=== PATIENT | female | born 1980 | race Caucasian/White ===

== ENCOUNTER 2023-03-22 09:34 | Outpatient (OUT) | payer OTHER, SELFPAY ==
[2023-03-22 10:08] LABS: Basophils Percent Auto 0.7 % (0.2-2.0); Eosinophils Absolute Auto 0.2 10^3/uL (0.0-0.7); Eosinophils Percent Auto 3.9 % (0.9-7.0); Hematocrit 25.1 % (36.0-48.0); Immature Granulocytes Abs Auto 0.02 10^3/uL (0.00-0.03); Immature Granulocytes Pct Auto 0.3 % (0.0-0.5); Lymphocytes Absolute Auto 1.7 10^3/uL (1.2-3.8); Lymphocytes Percent Auto 28.1 % (20.5-60.0); Mean Corpuscular HGB Conc 31.9 g/dL (29.9-35.2); Mean Corpuscular Hemoglobin 27.2 pg (26.7-34.0); Mean Corpuscular Volume 85.4 fL (81.0-99.0); Mean Platelet Volume 9.1 fL (9.5-13.5); Monocytes Absolute Auto 0.3 10^3/uL (0.3-0.8); Monocytes Percent Auto 5.2 % (1.7-12.0); Neutrophils Absolute Auto 3.7 10^3/uL (1.4-6.5); Neutrophils Percent Auto 61.8 % (43.0-75.0); Platelet Count 269 10^3/uL (150-450); Red Blood Count 2.94 10^6/uL (4.20-5.40); Red Cell Distribution Width 19.8 % (11.0-15.0); White Blood Count 5.9 10^3/uL (4.0-11.0)
[2023-03-22 10:53] LABS: Estimated Average Glucose 108 mg/dL; Glycohemoglobin A1C 5.4 % (4.5-6.2)
[2023-03-22 10:54] LABS: Free T4 0.85 ng/dL (0.76-1.46)
[2023-03-22 11:42] LABS: HCG Quantitative <1 mIU/mL; Thyroid Stimulating Hormone 3.625 uIU/mL (0.358-3.740)
[2023-03-23 04:12] LABS: DHEA-Sulfate 50.3 ug/dL (57.3-279.2); FSH 3.1 mIU/mL (.); Luteinizing Hormone(LH) 5.1 mIU/mL (.)
[2023-03-27 15:13] LABS: DHEA, Serum 192 ng/dL (31-701)
== END 2023-03-22 09:35 ==
LOC: LAB 09:38
PROVIDERS: Visit Provider Obstetrics & Gynecology
DX: E88.81 Metabolic syndrome and other insulin resistance (principal)
CPT/HCPCS: 36415; 82626; 82627; 83001; 83002; 83036; 84439; 84443; 84702; 85025

== ENCOUNTER 2023-04-03 19:23 | Observation (INO) | payer OTHER, SELFPAY ==
[2023-04-03 19:29] VITALS: BP 169/94; PULSE 107; RESP 22; TEMP 36.9; O2SAT 100; BMI 40.8
[2023-04-03 19:31] VITALS: BP 169/94; PULSE 106; PULSE 108; RESP 21; RESP 25; O2SAT 100; O2SAT 99
--- NOTE | 2023-04-03 19:45 | PC.NURSE ---
pt presents to ED because patient states she has had a lot of uterine issues. pt had d/c a couple weeks ago. pt states that she has a hysterectomy scheduled in may. pt saw dr. murphy 2 weeks ago and was placed on megestrol to help control vaginal bleeding. pt states she was passing large clots but now bleeding has slowed down and she is barely bleeding. pt does have hx of anemia and had blood drawn 2 weeks ago and her hgb was 8. pt states for the last 2 weeks she has been experiencing dizziness, lightheadedness, heaviness in chest, sob, and headaches. over the last 4 days these symptoms have become increasingly worse.
--- NOTE | 2023-04-03 19:46 | ECG_ITS ---
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
--- NOTE | 2023-04-03 19:50 | ED.DIZZY1 ---
HPI - Dizziness General Chief Complaint: Dizziness Stated Complaint: DIZZNESS SHORTNESS OF BREATH Time Seen by Provider: 04/03/23 19:37 Source: patient Mode of arrival: walk-in Limitations: no limitations History of Present Illness HPI Narrative: patient is a 42-year-old female who presents to the emergency department for the evaluation of dizziness, shortness of breath increasing over the last several days. Patient has had ongoing issues with dysfunctional uterine bleeding and was seen in this emergency department several months ago, placed on Megace with significant improvement. She states that she had a D and C two weeks ago with significant improvement of the bleeding. Two weeks ago she had a return of severe dysfunctional uterine bleeding and was placed again on the Megace. She states her hemoglobin is that time was 8.0. She has continued to have worsening of shortness of breath, dizziness and feels nauseous. She has never received a blood transfusion in the past. She does have a history of anemia. She reports some tightness in the chest. Related Data Home Medications Medication Instructions Recorded Confirmed megestrol 20 mg tablet 20 mg PO DAILY 04/03/23 04/03/23 venlafaxine 37.5 mg 37.5 mg PO DAILY 04/03/23 04/03/23 capsule,extended release 24 hr Allergies Allergy/AdvReac Type Severity Reaction Status Date / Time No Known Drug Allergies Allergy Verified 04/03/23 19:35 Review of Systems ROS Constitutional Denies: fever or chills Cardiovascular Denies: chest pain Respiratory Reports: shortness of breath; Denies: cough Gastrointestinal Reports: nausea; Denies: abdominal pain or vomiting Musculoskeletal Denies: back pain Integumentary/Breast Denies: rash Neurological Denies: headache Psychiatric Reports: anxiety PFSH PFS Social History Smoking status: Never smoker Gender Identity: female Exam Narrative Exam Narrative: Gen.: Awake, alert, in no distress Head: Normocephalic, atraumatic ENT: Moist mucous membranes Respiratory: No respiratory distress, lungs clear bilaterally Cardio: Regular rate and rhythm Gastrointestinal: Abdomen is soft, nondistended and nontender to palpation Extremities: Moves extremities equally Psych: Normal mood and affect Neuro: No focal neuro deficit Skin: Warm, dry, intact Constitutional Vital Signs - 24 hr 04/03/23 19:29 04/03/23 19:31 04/03/23 19:31 Temperature 98.5 F Pulse Rate 108 H 106 H Pulse Rate [Monitor] 107 H Respiratory Rate 22 21 25 H Blood Pressure 169/94 H 169/94 H Blood Pressure [Left Arm] 169/94 H Pulse Oximetry 100 100 99 Oxygen Delivery Method Room Air 04/03/23 19:31 Temperature Pulse Rate Pulse Rate [Monitor] Respiratory Rate Blood Pressure 169/94 H Blood Pressure [Left Arm] Pulse Oximetry Oxygen Delivery Method Course Vital Signs Vital signs: Vital Signs Temperature 98.5 F 04/03/23 19:29 Pulse Rate 107 H 04/03/23 19:29 Respiratory Rate 22 04/03/23 19:29 Blood Pressure 169/94 H 04/03/23 19:29 Pulse Oximetry 100 04/03/23 19:29 Oxygen Delivery Method Room Air 04/03/23 19:29 Temperature 97.8 F 04/04/23 06:03 Pulse Rate 93 H 04/04/23 06:03 Respiratory Rate 16 04/04/23 06:03 Blood Pressure 101/63 04/04/23 06:03 Pulse Oximetry 99 04/04/23 06:03 Oxygen Delivery Method Room Air 04/04/23 06:03 MDM - Dizziness MDM Narrative Medical decision making narrative: patient was treated with IV fluids, she was given Zofran for nausea. She does not complain of pain. At this time vaginal bleeding is well-controlled. Lab studies show normal troponin, d-dimer, BNP and otherwise normal electrolytes. Chest x-ray was ordered. Patient was noted to have a hemoglobin of 7.0 and hematocrit 22.[address] Discussed with Dr. Suárez for gynecology and he will not do any emergent procedures for the patient but she should be admitted for observation for blood transfusion with further evaluation and treatment by SPECIAL EDUCATION SUPERVISOR as an outpatient. Patient is agreeable to admission and two units of blood were ordered for her. She is admitted to hospitalist service for observation with telemetry. Medical Records Attestation: I reviewed the patient's medical records. Lab Data Attestation: I reviewed the patient's lab results. Labs: Lab Results 04/03/23 04/03/23 04/03/23 Range/Units 19:50 20:09 20:50 WBC 6.3 (4.0-11.0) 10^3/uL RBC 2.66 L (4.20-5.40) 10^6/uL Hgb 7.0 L (12.0-16.0) g/dL Hct 22.7 L* (36.0-48.0) % MCV 85.3 (81.0-99.0) fL MCH 26.3 L (26.7-34.0) pg MCHC 30.8 (29.9-35.2) g/dL RDW 19.0 H (11.0-15.0) % Plt Count 309 (150-450) 10^3/uL MPV 9.3 L (9.5-13.5) fL Neut % (Auto) 60.5 (43.0-75.0) % Lymph % (Auto) 26.7 (20.5-60.0) % Citrus % (Auto) 7.2 (1.7-12.0) % Eos % (Auto) 4.6 (0.9-7.0) % Baso % (Auto) 0.5 (0.2-2.0) % Neut # (Auto) 3.8 (1.4-6.5) 10^3/uL Lymph # (Auto) 1.7 (1.2-3.8) 10^3/uL Citrus # (Auto) 0.5 (0.3-0.8) 10^3/uL Eos # (Auto) 0.3 (0.0-0.7) 10^3/uL Baso # (Auto) 0.0 (0.0-0.1) 10^3/uL Abs Immat Gran (auto) 0.03 (0.00-0.03) 10^3/uL Imm/Tot Granulo (auto) 0.5 (0.0-0.5) % PT 10.1 (9.0-11.6) sec INR 0.95 APTT 22.5 (22.3-36.2) sec D-Dimer 0.30 (<=0.59) mg/L FEU VBG pH 7.414 (7.330-7.430) VBG pCO2 39.2 L (40.0-52.0) mmHg Sodium 135 L (136-145) mmol/L Potassium 3.7 (3.5-5.1) mmol/L Chloride 103 (98-107) mmol/L Carbon Dioxide 23.7 (21.0-32.0) mmol/L Anion Gap 12.0 BUN 14.0 (7.0-18.0) mg/dL Creatinine 0.88 (0.55-1.02) mg/dL Est GFR ( Amer) >60 (>=60) Est GFR (Non-Af Amer) >60 (>=60) BUN/Creatinine Ratio 15.9 Glucose 118 H (74-106) mg/dL Calcium 8.8 (8.5-10.1) mg/dL Iron 21.0 L (50.0-170.0) ug/dL TIBC 552.0 H (250.0-450.0) ug/dL % Saturation 3.8 % Ferritin 8.0 (8.0-252.0) ng/mL Total Bilirubin 0.5 (0.2-1.0) mg/dL AST 27 (15-37) U/L ALT 41 (14-59) U/L Alkaline Phosphatase 49 (46-116) U/L Troponin I High Sens <4.0 L (4.0-51.3) pg/mL NT-Pro-B Natriuret Pep 50.0 (<=450.0) pg/mL Total Protein 7.2 (6.4-8.2) g/dL Albumin 3.6 (3.4-5.0) g/dL Globulin 3.6 g/dL Albumin/Globulin Ratio 1.0 Serum HCG, Qual Negative (NEGATIVE) Blood Type A Negative Antibody Screen Negative Crossmatch See Detail Imaging Data Chest x-ray: Attestation: I have reviewed the pertinent imaging results. ECG Data Attestation: I personally reviewed and interpreted this ECG as follows: (sinus tachycardia at a rate of one hundred, no acute ST elevation or ectopy. EKG reviewed by attending physician) ECG interpretation date: 04/03/23 ECG interpretation time: 20:03 Critical Care Time Critical Care Time Critical Care Time: Yes Total Critical Care Time: 35 Attestation: critical care time thirty-five minutes Discharge Plan Discharge Chief Complaint: Dizziness Clinical Impression: Shortness of breath, Dizziness, Anemia Patient Disposition: Admitted as Observation Time of Disposition Decision: 20:48 Discharge Date/Time: 04/03/23 21:44
[2023-04-03 20:02] LABS: Basophils Percent Auto 0.5 % (0.2-2.0); Eosinophils Absolute Auto 0.3 10^3/uL (0.0-0.7); Eosinophils Percent Auto 4.6 % (0.9-7.0); Immature Granulocytes Abs Auto 0.03 10^3/uL (0.00-0.03); Immature Granulocytes Pct Auto 0.5 % (0.0-0.5); Lymphocytes Absolute Auto 1.7 10^3/uL (1.2-3.8); Lymphocytes Percent Auto 26.7 % (20.5-60.0); Mean Corpuscular HGB Conc 30.8 g/dL (29.9-35.2); Mean Corpuscular Hemoglobin 26.3 pg (26.7-34.0); Mean Corpuscular Volume 85.3 fL (81.0-99.0); Mean Platelet Volume 9.3 fL (9.5-13.5); Monocytes Absolute Auto 0.5 10^3/uL (0.3-0.8); Monocytes Percent Auto 7.2 % (1.7-12.0); Neutrophils Absolute Auto 3.8 10^3/uL (1.4-6.5); Neutrophils Percent Auto 60.5 % (43.0-75.0); Platelet Count 309 10^3/uL (150-450); Red Blood Count 2.66 10^6/uL (4.20-5.40); White Blood Count 6.3 10^3/uL (4.0-11.0)
[2023-04-03 20:04] LABS: Hematocrit 22.7 % (36.0-48.0)
[2023-04-03 20:16] LABS: PCO2 VBG 39.2 mmHg (40.0-52.0); pH VBG 7.414 (7.330-7.430)
[2023-04-03 20:22] LABS: INR 0.95; Partial Thromboplastin Time 22.5 sec (22.3-36.2); Prothrombin Time 10.1 sec (9.0-11.6)
[2023-04-03] MEDS: 0.9 % SODIUM CHLORIDE 1,000 ML 999 ML IV (20:23)
[2023-04-03 20:24] LABS: HCG Qualitative NEGATIVE (NEGATIVE)
[2023-04-03] MEDS: ONDANSETRON PF 4 MG/2 ML VIAL IV (20:24)
[2023-04-03 20:30] LABS: Alanine Aminotransferase 41 U/L (14-59); Albumin Level 3.6 g/dL (3.4-5.0); Alkaline Phosphatase 49 U/L (46-116); Aspartate Amino Transferase 27 U/L (15-37); BUN Creatinine Ratio 15.9; Bilirubin Total 0.5 mg/dL (0.2-1.0); Calcium 8.8 mg/dL (8.5-10.1); Carbon Dioxide 23.7 mmol/L (21.0-32.0); Chloride 103 mmol/L (98-107); Estimated GFR (African America >60 (>=60); Estimated GFR (Non-African Ame >60 (>=60); Globulin 3.6 g/dL; Glucose 118 mg/dL (74-106); Potassium 3.7 mmol/L (3.5-5.1); Sodium 135 mmol/L (136-145); Total Protein 7.2 g/dL (6.4-8.2); Troponin I High Sensitivity <4.0 pg/mL (4.0-51.3)
--- NOTE | 2023-04-03 20:32 | XR_ITS ---
The [address] [address] Patient Name: JOURDAN MILAN MRN: [id number] date: 1980 Sex: F Assigned Patient Location: ER Current Patient Location: ER Accession/Order Number: [id number] Exam Date: 04/03/2023 20:30 Report Date: 04/03/2023 20:47 At the request of: JOSÉ MIGUEL RILEY Procedure: XR chest 1V EXAM: XR chest 1V at 2035 hours HISTORY: shortness of breath COMPARISON: None. TECHNIQUE: AP upright portable chest x-ray FINDINGS: The heart is not enlarged and the vasculature is not distended. No acute infiltrate, effusion or pneumothorax is identified. A small calcified granulomas suggested in the right mid to upper lung laterally. The osseous structures are grossly intact. IMPRESSION: No acute infiltrate or evidence of cardiac decompensation. Mild chronic changes are present. Direct comparison with a previous study would be helpful in determining the chronicity of these findings. Electronically authenticated by: RALF HOOPER Date: 04/03/2023 20:47
[2023-04-03 21:23] VITALS: PULSE 101
[2023-04-03 21:35] VITALS: BP 109/77; PULSE 89; PULSE 96; RESP 14; RESP 16; TEMP 37.1; O2SAT 96; BMI 41.2
[2023-04-03 22:00] VITALS: BP 109/77; BP 169/94; PULSE 102; RESP 16; TEMP 37.1; O2SAT 96
[2023-04-04] VITALS (15 sets, daily range): BP systolic 101–169; BP diastolic 63–94; PULSE 80–100; RESP 16; TEMP 36.5–37.3; O2SAT 16–99
--- NOTE | 2023-04-04 00:39 | P.PN_ITS ---
Progress Note: Subjective Subjective Interval history: CC: Dizziness HPI: patient is a 42-year-old female who presents to the emergency department for evaluation of the above complaints. Patient endorses dizziness, shortness of breath increasing over the last several days. Patient has had ongoing issues with dysfunctional uterine bleeding and was seen in this emergency department several months ago, placed on Megace with significant improvement. She states that she had a D and C two weeks ago with significant improvement of the bleeding. Patient follows with Dr. Suárez. Two weeks ago she had a return of severe dysfunctional uterine bleeding and was placed again on the Megace. She states her hemoglobin is that time was 8.0. She has continued to have worsening of shortness of breath, dizziness and feels nauseous. She has never received a blood transfusion in the past. She does have a history of anemia. She reports some tightness in the chest. Evaluation in the emergency room revealed hemoglobin of 7 with some degree of dehydration. Exam Narrative Exam Narrative: Physical Exam: Not in distress, pleasant, lucid, cooperative, Head - atraumatic, eyes - pupils equal, round, reactive to light, extra ocular movement intact, MMM Neck - supple, thyroid not enlarged, LN not palpated Lungs - clear to auscultation, no dullness on percussion CVS - heart sounds S1, S2, no additional murmurs gallop, regular rate and rhythm Gastrointestinal?abdomen is soft, non-tender, non-distended, no organomegaly, positive bowel sounds Extremities no clubbing, cyanosis or edema Neurological?cranial nerve II?XII grossly intact, no meningeal signs, no cerebellar signs, no sensory deficit Musculoskeletal - joints, no effusions, ROM preserved Dermatological - the skin dry, warm, no rashes Psychiatric?patient is AAO X3, patient has normal affect Constitutional Vital Signs - 24 hr 04/03/23 19:29 04/03/23 19:31 04/03/23 19:31 Temperature 98.5 F Pulse Rate 108 H 106 H Pulse Rate [Monitor] 107 H Respiratory Rate 22 21 25 H Blood Pressure 169/94 H 169/94 H Blood Pressure [Left Arm] 169/94 H Blood Pressure [Right Arm] Pulse Oximetry 100 100 99 Oxygen Delivery Method Room Air 04/03/23 19:31 04/03/23 21:23 04/03/23 21:35 Temperature Pulse Rate 101 H 89 Pulse Rate [Monitor] Respiratory Rate Blood Pressure 169/94 H Blood Pressure [Left Arm] Blood Pressure [Right Arm] Pulse Oximetry Oxygen Delivery Method 04/03/23 22:00 04/03/23 21:35 04/03/23 21:35 Temperature 98.7 F Pulse Rate 102 H 96 H Pulse Rate [Monitor] Respiratory Rate 14 16 Blood Pressure Blood Pressure [Left Arm] Blood Pressure [Right Arm] 109/77 Pulse Oximetry 96 Oxygen Delivery Method Room Air 04/03/23 21:35 04/03/23 22:00 04/04/23 00:00 Temperature 98.7 F Pulse Rate 102 H 96 H Pulse Rate [Monitor] Respiratory Rate 16 16 Blood Pressure Blood Pressure [Left Arm] 169/94 H Blood Pressure [Right Arm] 109/77 Pulse Oximetry 96 96 Oxygen Delivery Method Room Air Room Air Progress Note: Objective Labs Labs: Short CBC 04/03/23 Range/Units 19:50 WBC 6.3 (4.0-11.0) 10^3/uL Hgb 7.0 L (12.0-16.0) g/dL Hct 22.7 L* (36.0-48.0) % Plt Count 309 (150-450) 10^3/uL BMP 04/03/23 19:50 Sodium 135 L Potassium 3.7 Chloride 103 Carbon Dioxide 23.7 BUN 14.0 Creatinine 0.88 Glucose 118 H Calcium 8.8 Liver Function 04/03/23 Range/Units 19:50 Total Bilirubin 0.5 (0.2-1.0) mg/dL AST 27 (15-37) U/L ALT 41 (14-59) U/L Alkaline Phosphatase 49 (46-116) U/L Albumin 3.6 (3.4-5.0) g/dL Progress Note: A&P Assessment and Plan (1) Shortness of breath: Assessment and Plan: Most probably related to anemia. Reevaluate after patient received IV blood transfusion (2) Dizziness: Assessment and Plan: Also related to above. Monitor orthostatic vital signs (3) Anemia: Assessment and Plan: As above. 2 units of red blood cells ordered by ED physician (4) Menorrhagia: Assessment and Plan: Patient has known dysfunction uterus with menorrhagia. Patient follows with Dr. Suárez. He indicated to ED physician that he is going to see patient in the office after discharge shortly Telemedicine Attestation Telemedicine Attestation I conducted this encounter from [place][] via secure live, [id number] video conference with the patient, located at [facility] with [symptomtic anemia]. Prior to the interview, the risks and benefits of telemedicine were discussed with the patient and verbal consent was obtained. As the provider for the telehealth service, I attest that I introduced myself to the patient, provided my credentials, disclosed by location and determined that based on a review of the patient's chart and discussion with members of the patient's treatment team, telemedicine via real-time, 2 way, and interactive audio and video platform is an appropriate and effective means of providing the service. ?The patient and I mutually agree this visit is appropriate for tele medicine. ?[place] ?The encounter took approximately 35 minutes. ?The nurse was present during the entire time and I was able to move the stethoscope in appropriate directions. ?The patient was evaluated at the Hospital ? Portions of this note may be dictated using [employer] voice recognition software. Variances in spelling and vocabulary are possible and unintentional. Not all errors may be caught and/or corrected. Please notify the author if any discrepancies are noted and/or if the meaning of any statement is unclear.? ? Patient verbally consented for treatment via video visit with patient currently located at [facility] and provider located in [place].
[2023-04-04 01:12] LABS: Percent Iron Saturation 3.8 %
[2023-04-04] MEDS: 0.9 % SODIUM CHLORIDE 250 ML 999 ML IV (07:12)
[2023-04-04 08:16] LABS: Basophils Percent Auto 0.7 % (0.2-2.0); Eosinophils Absolute Auto 0.3 10^3/uL (0.0-0.7); Eosinophils Percent Auto 5.1 % (0.9-7.0); Hematocrit 27.4 % (36.0-48.0); Hemoglobin 8.8 g/dL (12.0-16.0); Immature Granulocytes Abs Auto 0.02 10^3/uL (0.00-0.03); Immature Granulocytes Pct Auto 0.3 % (0.0-0.5); Lymphocytes Absolute Auto 1.9 10^3/uL (1.2-3.8); Lymphocytes Percent Auto 32.2 % (20.5-60.0); Mean Corpuscular HGB Conc 32.1 g/dL (29.9-35.2); Mean Corpuscular Hemoglobin 27.5 pg (26.7-34.0); Mean Corpuscular Volume 85.6 fL (81.0-99.0); Mean Platelet Volume 9.4 fL (9.5-13.5); Monocytes Absolute Auto 0.5 10^3/uL (0.3-0.8); Monocytes Percent Auto 7.8 % (1.7-12.0); Neutrophils Absolute Auto 3.2 10^3/uL (1.4-6.5); Neutrophils Percent Auto 53.9 % (43.0-75.0); Platelet Count 265 10^3/uL (150-450); Red Cell Distribution Width 17.9 % (11.0-15.0)
[2023-04-04 08:21] LABS: Glucose 113 mg/dL (74-106)
--- NOTE | 2023-04-04 08:25 | PM.HP ---
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, admitted overnight for IV hydration and blood products [facility] Social History Smoking status: Never smoker Gender Identity: female Meds Home Medications and Allergies Home Medications Medication Instructions Recorded Confirmed Type megestrol 20 mg tablet 20 mg PO DAILY 04/03/23 04/03/23 History venlafaxine 37.5 mg 37.5 mg PO DAILY 04/03/23 04/03/23 History capsule,extended release 24 hr Allergies Allergy/AdvReac Type Severity Reaction Status Date / Time No Known Drug Allergies Allergy Verified 04/03/23 19:35 Exam Constitutional Vital Signs - 24 hr 04/03/23 19:29 04/03/23 19:31 04/03/23 19:31 Temperature 98.5 F Pulse Rate 108 H 106 H Pulse Rate [Monitor] 107 H Respiratory Rate 22 21 25 H Blood Pressure 169/94 H 169/94 H Blood Pressure [Left Arm] 169/94 H Blood Pressure [Right Arm] Pulse Oximetry 100 100 99 Oxygen Delivery Method Room Air 04/03/23 19:31 04/03/23 21:23 04/03/23 21:35 Temperature Pulse Rate 101 H 89 Pulse Rate [Monitor] Respiratory Rate Blood Pressure 169/94 H Blood Pressure [Left Arm] Blood Pressure [Right Arm] Pulse Oximetry Oxygen Delivery Method 04/03/23 22:00 04/03/23 21:35 04/03/23 21:35 Temperature 98.7 F Pulse Rate 102 H 96 H Pulse Rate [Monitor] Respiratory Rate 14 16 Blood Pressure Blood Pressure [Left Arm] Blood Pressure [Right Arm] 109/77 Pulse Oximetry 96 Oxygen Delivery Method Room Air 04/03/23 21:35 04/03/23 22:00 04/04/23 00:00 Temperature 98.7 F Pulse Rate 102 H 96 H Pulse Rate [Monitor] Respiratory Rate 16 16 Blood Pressure Blood Pressure [Left Arm] 169/94 H Blood Pressure [Right Arm] 109/77 Pulse Oximetry 96 96 Oxygen Delivery Method Room Air Room Air 04/04/23 01:10 04/04/23 01:28 04/04/23 02:00 Temperature 99.1 F 99.2 F Pulse Rate 100 H 81 Pulse Rate [Monitor] Respiratory Rate 16 16 Blood Pressure 112/75 108/74 Blood Pressure [Left Arm] Blood Pressure [Right Arm] Pulse Oximetry 97 Oxygen Delivery Method Room Air Room Air 04/04/23 02:28 04/04/23 03:36 04/04/23 04:00 Temperature 98.6 F 98.4 F 97.7 F Pulse Rate 91 H 93 H 90 Pulse Rate [Monitor] Respiratory Rate 16 16 16 Blood Pressure 114/80 H 113/74 111/74 Blood Pressure [Left Arm] Blood Pressure [Right Arm] Pulse Oximetry 97 Oxygen Delivery Method Room Air Room Air Room Air 04/04/23 04:00 04/04/23 05:27 04/04/23 04:19 Temperature 97.8 F 99.1 F Pulse Rate 91 H 93 H 90 Pulse Rate [Monitor] Respiratory Rate 16 16 Blood Pressure 116/75 Blood Pressure [Left Arm] Blood Pressure [Right Arm] 101/63 Pulse Oximetry 99 16 L Oxygen Delivery Method Room Air Room Air 04/04/23 04:21 04/04/23 05:46 04/04/23 06:00 Temperature 99.1 F 97.8 F 97.8 F Pulse Rate 93 H 93 H Pulse Rate [Monitor] Respiratory Rate 16 16 Blood Pressure 101/63 Blood Pressure [Left Arm] 169/94 H Blood Pressure [Right Arm] 101/63 Pulse Oximetry 99 Oxygen Delivery Method Room Air 04/04/23 06:03 04/04/23 06:00 04/04/23 08:00 Temperature 97.8 F Pulse Rate 93 H 81 95 H Pulse Rate [Monitor] Respiratory Rate 16 Blood Pressure 101/63 Blood Pressure [Left Arm] Blood Pressure [Right Arm] Pulse Oximetry 99 Oxygen Delivery Method Room Air Common normals: no apparent distress HENMT Common normals: nasal mucous membranes and turbinates normal Chest Common normals: inspection of chest normal Respiratory Effort & inspection: able to speak in complete sentences Auscultation: clear to auscultation bilaterally Cardio Common normals: no JVD, regular rate, regular rhythm, S1 normal heart sound and S2 normal heart sound Results Labs Labs: Short CBC 04/03/23 04/04/23 Range/Units 19:50 07:51 WBC 6.3 6.0 (4.0-11.0) 10^3/uL Hgb 7.0 L 8.8 L (12.0-16.0) g/dL Hct 22.7 L* 27.4 L (36.0-48.0) % Plt Count 309 265 (150-450) 10^3/uL BMP 04/03/23 04/04/23 19:50 07:51 Sodium 135 L Potassium 3.7 Chloride 103 Carbon Dioxide 23.7 BUN 14.0 Creatinine 0.88 Glucose 118 H 113 H Calcium 8.8 Liver Function 04/03/23 Range/Units 19:50 Total Bilirubin 0.5 (0.2-1.0) mg/dL AST 27 (15-37) U/L ALT 41 (14-59) U/L Alkaline Phosphatase 49 (46-116) U/L Albumin 3.6 (3.4-5.0) g/dL ABG ABG results: 04/03/23 20:09 VBG pH 7.414 VBG pCO2 39.2 L Assessment and Plan Assessment and Plan (1) Shortness of breath: (2) Menorrhagia: (3) Dizziness: (4) Anemia: Plan Lightheadedness, shortness of breath, near syncope secondary to acute blood loss secondary to vaginal bleeding-bleeding appears to have stopped this morning we will check on CBC if hemoglobin has come up close to 2 points patient to be discharged home in improving condition. Medications see list. 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
--- NOTE | 2023-04-04 08:41 | CM.NOTE ---
Rounds made with Dr. Hussein, pt denies any dizziness this AM. Pt up ad neida in room. H&H to be rechecked if stable pt ok for discharge to home. No discharge needs identified.
--- NOTE | 2023-04-04 11:57 | SWNOTE1 ---
SW met with pt to discuss needs. Pt is independent at home, lives in the upstairs apartment. She is at home with her significant other and 2 children. Pt denies any discharge needs at this time. SW to follow as needed.
--- NOTE | 2023-04-09 15:09 | CM.DCFOLLOWU ---
Person spoke with:patient How are you feeling? good How is your pain? no pain Did you understand your discharge instructions? yes Do you have any questions about your discharge instructions? no Were you given any prescriptions at discharge? no Were you able to get your prescriptions filled? Do you understand how to take your medications as ordered? yes Do you have any questions about your follow up appointment and do you plan to keep your follow up appointment? follow up completed with Dr. Suárez, waiting for call from hospital for iron infusions. Advised to call registration or Dr. Suárez's office if she has not heard anything by Sunday Is there anything else that you would like to discuss? no Questions/Comments/Concerns/Other:
== END 2023-04-04 11:55 | disposition home or self-care (01) ==
LOC: ER 20:50 → MS 21:29
PROVIDERS: Physician Assistant; Admitting Provider Internal Medicine; Emergency Provider Internal Medicine; Visit Provider Internal Medicine
DX: D62 Acute posthemorrhagic anemia (principal); R55 Syncope and collapse; N92.0 Excessive and frequent menstruation with regular cycle; R06.02 Shortness of breath; R42 Dizziness and giddiness; Z79.899 Other long term (current) drug therapy
CPT/HCPCS: 36415; 36430; 71045; 80053; 82728; 82800; 82947; 83540; 83550; 83880; 84484; 84703; 85025; 85378; 85610; 85730; 86850; 86900; 86901; 93005; 96374; 99285; G0378; P9016; Q3014

== ENCOUNTER 2023-04-30 10:59 | Outpatient (OUT) | payer OTHER, SELFPAY ==
[2023-04-30 12:05] LABS: Basophils Percent Auto 0.7 % (0.2-2.0); Eosinophils Absolute Auto 0.2 10^3/uL (0.0-0.7); Eosinophils Percent Auto 2.6 % (0.9-7.0); Hematocrit 31.7 % (36.0-48.0); Hemoglobin 10.1 g/dL (12.0-16.0); Immature Granulocytes Abs Auto 0.02 10^3/uL (0.00-0.03); Immature Granulocytes Pct Auto 0.4 % (0.0-0.5); Lymphocytes Absolute Auto 1.5 10^3/uL (1.2-3.8); Lymphocytes Percent Auto 26.5 % (20.5-60.0); Mean Corpuscular HGB Conc 31.9 g/dL (29.9-35.2); Mean Corpuscular Hemoglobin 27.7 pg (26.7-34.0); Mean Corpuscular Volume 86.8 fL (81.0-99.0); Mean Platelet Volume 9.2 fL (9.5-13.5); Monocytes Absolute Auto 0.3 10^3/uL (0.3-0.8); Monocytes Percent Auto 5.8 % (1.7-12.0); Neutrophils Absolute Auto 3.7 10^3/uL (1.4-6.5); Platelet Count 239 10^3/uL (150-450); Red Blood Count 3.65 10^6/uL (4.20-5.40); Red Cell Distribution Width 18.2 % (11.0-15.0); White Blood Count 5.7 10^3/uL (4.0-11.0)
[2023-04-30 12:22] LABS: Partial Thromboplastin Time 24.5 sec (22.3-36.2); Prothrombin Time 9.6 sec (9.0-11.6)
[2023-04-30 12:26] LABS: INR <0.93
[2023-04-30 12:47] LABS: Alanine Aminotransferase 17 U/L (14-59); Albumin Globulin Ratio 0.8; Albumin Level 3.1 g/dL (3.4-5.0); Alkaline Phosphatase 46 U/L (46-116); Anion Gap 12.6; Aspartate Amino Transferase 10 U/L (15-37); BUN Creatinine Ratio 14.1; Bilirubin Direct 0.1 mg/dL (0.0-0.2); Bilirubin Total 0.5 mg/dL (0.2-1.0); Calcium 8.7 mg/dL (8.5-10.1); Chloride 103 mmol/L (98-107); Estimated GFR (African America >60 (>=60); Estimated GFR (Non-African Ame >60 (>=60); Glucose 97 mg/dL (74-106); Potassium 4.6 mmol/L (3.5-5.1); Sodium 136 mmol/L (136-145); Total Protein 7.1 g/dL (6.4-8.2)
== END 2023-04-30 11:00 | disposition home or self-care (01) ==
LOC: PST 11:01
PROVIDERS: PCP Internal Medicine; Visit Provider Obstetrics & Gynecology
DX: Z01.812 Encounter for preprocedural laboratory examination (principal); N92.0 Excessive and frequent menstruation with regular cycle; D50.9 Iron deficiency anemia, unspecified; N94.10 Unspecified dyspareunia; N94.6 Dysmenorrhea, unspecified
CPT/HCPCS: 36415; 80048; 80076; 85025; 85610; 85730; 86850; 86900; 86901

== ENCOUNTER 2023-05-07 10:25 | Outpatient (OUT) | payer OTHER, SELFPAY | END 2023-05-07 10:26 | disposition home or self-care (01) | LOC: LAB 05-10 10:40 | PROVIDERS: PCP Internal Medicine | DX: Z01.812 Encounter for preprocedural laboratory examination (principal); R10.9 Unspecified abdominal pain; D50.9 Iron deficiency anemia, unspecified; N92.0 Excessive and frequent menstruation with regular cycle; N94.10 Unspecified dyspareunia; N94.6 Dysmenorrhea, unspecified | CPT/HCPCS: 36415; 86850; 86900; 86901 ==

== ENCOUNTER 2023-05-10 14:00 | Observation (INO) | payer OTHER, SELFPAY ==
[2023-04-30 11:26] VITALS: BP 139/88; PULSE 98; RESP 18; TEMP 36.6; O2SAT 97; BMI 42.0
[2023-05-09] VITALS (17 sets, daily range): BP systolic 107–159; BP diastolic 75–106; PULSE 78–103; RESP 10–20; TEMP 36–36.7; O2SAT 87–99; BMI 42.4
[2023-05-09 06:24] LABS: Basophils Percent Auto 0.5 % (0.2-2.0); Eosinophils Absolute Auto 0.2 10^3/uL (0.0-0.7); Eosinophils Percent Auto 2.5 % (0.9-7.0); Hematocrit 31.5 % (36.0-48.0); Hemoglobin 10.2 g/dL (12.0-16.0); Immature Granulocytes Abs Auto 0.01 10^3/uL (0.00-0.03); Immature Granulocytes Pct Auto 0.2 % (0.0-0.5); Lymphocytes Absolute Auto 2.2 10^3/uL (1.2-3.8); Lymphocytes Percent Auto 36.1 % (20.5-60.0); Mean Corpuscular HGB Conc 32.4 g/dL (29.9-35.2); Mean Corpuscular Hemoglobin 28.3 pg (26.7-34.0); Mean Corpuscular Volume 87.5 fL (81.0-99.0); Mean Platelet Volume 9.1 fL (9.5-13.5); Monocytes Absolute Auto 0.4 10^3/uL (0.3-0.8); Monocytes Percent Auto 7.1 % (1.7-12.0); Neutrophils Absolute Auto 3.2 10^3/uL (1.4-6.5); Neutrophils Percent Auto 53.6 % (43.0-75.0); Platelet Count 273 10^3/uL (150-450); Red Cell Distribution Width 17.1 % (11.0-15.0)
[2023-05-09] MEDS: LACTATED RINGER'S SOLUTION 1,000 ML 50 ML IV (06:44)
[2023-05-09 06:48] LABS: HCG Quantitative <1 mIU/mL
[2023-05-09] MEDS: CEFAZOLIN SODIUM/DEXTROSE,ISO 2 GM/50 ML PIGGYBACK IV ×3 (07:28→21:08)
[2023-05-09] MEDS: LACTATED RINGER'S SOLUTION 1,000 ML 1000 ML IV ×2 (08:44→10:56)
--- NOTE | 2023-05-09 09:15 | P.GSPRC_ITS ---
Date of procedure: 05/09/23 Indications for Procedure: requested by Dr. Suárez for serosal tear on sigmoid colon Pre-op diagnosis: menorrhagia Procedure: closure of serosal tear on sigmoid colon with 3-0 Vicryl suture in [id number] fashion Findings: serosal tear 5-7 mm sigmoid colon Anesthesia: ALEXIS Surgeon: El Burton Procedure Summary: Dr. Suárez certified forklift operator was performing a hysterectomy and inadvertently had a slight serosal tear he was taking down some adhesions of the uterus. There was no leakage of stool or air but when I entered the robot console was about a 7 mm serosal tear with some clotted blood. This was closed with 3-0 Vicryl suture in [id number] fashion. He was Told to keep patient on liquids until she passed stool. Estimated blood loss (mL): 2 Specimens: none Complications: No Pathology: none sent Condition: stable Disposition: PACU
--- NOTE | 2023-05-09 12:47 | P.ON_ITS ---
Brief Operative Note Date of procedure: 05/09/23 Pre-op diagnosis: menorrhagia, dysmenorrhea, dyspareunia, pelvic pain Post-op diagnosis: same Procedure: NAME OF PROCEDURE: ? Robotic assisted laparoscopic hysterectomy with cystoscopy, bilateral salpingectomy,repair of serosal layer of bowel by dr antunez PROCEDURE:? The patient was taken back to the operating room, where she was prepped and draped in the normal sterile fashion after being placed in the dorsal lithotomy position.? Patient?s anesthesia was found to be adequate.? Surgical timeout was performed using two patient identifiers.? SCDs were on and in place.? Two grams of Ancef were given prior to the surgery.? Sterile Pitts catheter was inserted.? Standard size VCare was secured to the uterine cervix and the surgeon changed gloves.? Attention then was turned to the patient's abdomen, where a supraumbilical incision was then made.? Two S retractors were used to identify the patient?s fascia.? The fascia was then tented up using Gennaro clamps and the patient?s fascia was incised sharply.? Patient?s abdomen was identified and entered bluntly.? The patient had the trocar placed and a pneumoperitoneum was obtained.? Approximately 4 liters of CO2 gas was used.? The camera was then placed through the trocar.? At this time, two robot trocars were placed in the patient?s left and right side, two hand widths from the midline, and this was placed under direct visualization.? The patient?s tube on the right side was tented up and the vessel sealer was then used to come across the mesosalpinx, and this was carried down to the uterine ovarian ligament.? The vessel sealer was carried down serially to the broad ligament, to the area of the bladder flap, which was then created anteriorly, and the uterine arteries were skeletonized and sealed using the vessel sealer.? The colpotomy was made using the monopolar cautery on cut, and this was carried circumferentially, posteriorly to anteriorly, until the uterus was amputated.? The specimen was then removed intact through the vagina, without difficulty.? The vagina was then closed using two running V-Loc in a non-lock fashion.? The robot was undocked.? The abdomen was desufflated.? The skin defects were closed using 4-0 Vicryl.? Please note, the fascia was closed using 0 Vicryl.? Sponge, lap and needle counts were correct x2.? Patient was taken to recovery room in stable condition.? The patient was awakened by Anesthesia first.? Patient tolerated procedure well.??Please note repair of bowel serosa by dr antunez, dr antunez full penetration did not occur, he will dictate his portion. Anesthesia: ALEXIS Surgeon: Doc Suárez Strainer Tender: Christi Helm Estimated blood loss (mL): 150 Pathology: other (uterus and tubes) Condition: stable Disposition: PACU
--- NOTE | 2023-05-09 12:47 | PC.NURSE ---
4 abdominal dressings intact; peripad has scant pink drainage
[2023-05-09] MEDS: MEPERIDINE HCL/PF 25 MG/ML VIAL IVP (12:53)
--- NOTE | 2023-05-09 12:58 | PC.NURSE ---
dressings x4 to abdomen dry and intact; assessment of peripad unchanged
--- NOTE | 2023-05-09 13:04 | PC.NURSE ---
Dressings x4 dry and intact to abdomen; peripad with scant pink drainage
--- NOTE | 2023-05-09 13:13 | PC.NURSE ---
Peripad with scant drainage; dressings x4 to abdomen dry and intact; medicated with Demerol IV as ordered for pain; warm blanket to abdomen per pt. request
--- NOTE | 2023-05-09 13:19 | PC.NURSE ---
Dressings to abdomen dry and intact; scant drainage on peripad
--- NOTE | 2023-05-09 13:48 | PC.NURSE ---
Peripad with scant drainage ; dressings x4 to abdomen dry and intact
--- NOTE | 2023-05-09 13:51 | PC.NURSE ---
No change in assessment of peripad drainage; dressings to abdomen x4
[2023-05-09] MEDS: LACTATED RINGER'S SOLUTION 1,000 ML 125 ML IV (14:59)
[2023-05-09] MEDS: KETOROLAC TROMETHAMINE 30 MG/ML VIAL IVP (21:08)
[2023-05-09] MEDS: DOCUSATE SODIUM 100 MG CAPSULE PO (21:08)
[2023-05-10] VITALS (7 sets, daily range): BP systolic 116–129; BP diastolic 75–86; PULSE 88–100; RESP 18; TEMP 36.3–36.8; O2SAT 94–100
[2023-05-10] MEDS: LACTATED RINGER'S SOLUTION 1,000 ML 125 ML IV (01:41)
[2023-05-10 05:05] LABS: Basophils Percent Auto 0.1 % (0.2-2.0); Hemoglobin 8.3 g/dL (12.0-16.0); Immature Granulocytes Abs Auto 0.05 10^3/uL (0.00-0.03); Immature Granulocytes Pct Auto 0.4 % (0.0-0.5); Lymphocytes Absolute Auto 1.3 10^3/uL (1.2-3.8); Mean Corpuscular HGB Conc 30.7 g/dL (29.9-35.2); Mean Corpuscular Hemoglobin 28.3 pg (26.7-34.0); Mean Corpuscular Volume 92.2 fL (81.0-99.0); Mean Platelet Volume 9.1 fL (9.5-13.5); Monocytes Absolute Auto 0.9 10^3/uL (0.3-0.8); Monocytes Percent Auto 7.4 % (1.7-12.0); Neutrophils Absolute Auto 9.5 10^3/uL (1.4-6.5); Neutrophils Percent Auto 81.1 % (43.0-75.0); Platelet Count 242 10^3/uL (150-450); Red Blood Count 2.93 10^6/uL (4.20-5.40); Red Cell Distribution Width 17.2 % (11.0-15.0); White Blood Count 11.7 10^3/uL (4.0-11.0)
[2023-05-10 05:18] LABS: Estimated GFR (African America >60 (>=60); Estimated GFR (Non-African Ame >60 (>=60)
[2023-05-10] MEDS: DOCUSATE SODIUM 100 MG CAPSULE PO ×2 (05:49→11:29)
[2023-05-10] MEDS: KETOROLAC TROMETHAMINE 30 MG/ML VIAL IVP (05:49)
--- NOTE | 2023-05-10 06:20 | PC.NURSE ---
glucose 208
[2023-05-10] MEDS: IBUPROFEN 400 MG TABLET 800 MG PO (11:29)
[2023-05-10 13:32] LABS: Basophils Percent Auto 0.1 % (0.2-2.0); Eosinophils Percent Auto 0.2 % (0.9-7.0); Hematocrit 27.3 % (36.0-48.0); Hemoglobin 8.5 g/dL (12.0-16.0); Immature Granulocytes Abs Auto 0.04 10^3/uL (0.00-0.03); Immature Granulocytes Pct Auto 0.4 % (0.0-0.5); Lymphocytes Absolute Auto 1.8 10^3/uL (1.2-3.8); Mean Corpuscular HGB Conc 31.1 g/dL (29.9-35.2); Mean Corpuscular Hemoglobin 28.1 pg (26.7-34.0); Mean Corpuscular Volume 90.1 fL (81.0-99.0); Mean Platelet Volume 8.8 fL (9.5-13.5); Monocytes Absolute Auto 0.6 10^3/uL (0.3-0.8); Monocytes Percent Auto 5.9 % (1.7-12.0); Neutrophils Percent Auto 74.4 % (43.0-75.0); Platelet Count 256 10^3/uL (150-450); Red Blood Count 3.03 10^6/uL (4.20-5.40); Red Cell Distribution Width 17.4 % (11.0-15.0); White Blood Count 9.4 10^3/uL (4.0-11.0)
[2023-05-10] MEDS: ENOXAPARIN SODIUM 40 MG/0.4 ML SYRINGE SUBQ (13:40)
[2023-05-10] MEDS: SIMETHICONE 80 MG TAB.CHEW PO ×2 (13:40→20:03)
--- NOTE | 2023-05-11 | DS_ITS ---
DISCHARGE DATE: ??05/11/2023 PRIMARY DIAGNOSES: 1.? Dyspareunia. 2.? Menorrhagia. 3.? Dysmenorrhea. 4.? Pelvic pain. PROCEDURE:? Robotic assisted laparoscopic hysterectomy with bilateral salpingectomy with repair of serosal tissue of the bowel by Dr. Burton. EXAM:? Please note that during the exam:? Heart regular rate and rhythm.? Lungs clear to auscultation.? Abdomen soft, non-tender, non-distended.? Bowel sounds auscultated.? Extremities no clubbing, cyanosis or edema.? Vital signs were stable.? Patient was afebrile. HOSPITAL COURSE:? As expected.? Please see chart for full details.? LABORATORY DATA:? Please see chart. COMPLICATIONS:? None. DISCHARGE CONDITION:? Stable. CONSULTATION:? Anesthesia. DISCHARGE INSTRUCTIONS: 1.? Diet:? Regular. 2.? Medications: a.? Percocet 5/325 one to two p.o. every 4-6 hours p.r.n. pain. b.? Motrin 800 one p.o. every 8 hours p.r.n. pain. 3.? Followup in one week. Restrictions:? Pelvic rest for 6 weeks.? No heavy lifting.? May drive when pain free and no longer on narcotics. [facility]
[2023-05-11 04:24] VITALS: O2SAT 94
[2023-05-11 06:00] VITALS: BP 119/69; PULSE 107; RESP 18; TEMP 36.8; O2SAT 95
[2023-05-11] MEDS: SIMETHICONE 80 MG TAB.CHEW PO ×2 (06:21→12:06)
--- NOTE | 2023-05-11 07:27 | PC.NURSE ---
Bandages checked no new drainage noted
[2023-05-11] MEDS: IBUPROFEN 400 MG TABLET 800 MG PO ×2 (07:28→13:02)
[2023-05-11 11:44] VITALS: O2SAT 95
[2023-05-11] MEDS: ENOXAPARIN SODIUM 40 MG/0.4 ML SYRINGE SUBQ (13:17)
--- NOTE | 2023-05-15 15:48 | CM.DCFOLLOWU ---
Person spoke with:patient How are you feeling? alright How is your pain? some pain, but to be expected Did you understand your discharge instructions? yes Do you have any questions about your discharge instructions? no Were you given any prescriptions at discharge? yes Were you able to get your prescriptions filled? yes Do you understand how to take your medications as ordered? yes Do you have any questions about your follow up appointment and do you plan to keep your follow up appointment? follow up scheduled on 05/17/[address] Suárez Is there anything else that you would like to discuss? no Questions/Comments/Concerns/Other:
== END 2023-05-11 13:55 | disposition home or self-care (01) ==
LOC: SURGOUT 05-11 08:37 → MS 05-11 08:37
PROVIDERS: Admitting Provider Obstetrics & Gynecology; PCP Internal Medicine; Visit Provider Obstetrics & Gynecology
PROC: (CPT 840; principal; 2023-05-09 07:30)
DX: N92.1 Excessive and frequent menstruation with irregular cycle (principal); D50.8 Other iron deficiency anemias; N94.10 Unspecified dyspareunia; N94.6 Dysmenorrhea, unspecified; R10.2 Pelvic and perineal pain; K91.72 Accidental puncture and laceration of a digestive system organ or structure during other procedure
CPT/HCPCS: 58573; 36415; 82565; 82948; 84520; 84702; 85025; 88307; 94667; 94668; 94761; 96372; 96374; G0378; J1170; J2704